=== PATIENT | male | born 1955 | race Caucasian/White ===

== ENCOUNTER 2024-09-11 08:27 | Inpatient (IN) ==
--- NOTE | 2024-09-11 08:39 | Emergency Department Note ---
Impression & Plan Right middle lobe pneumonia, Rhinovirus infection, Bullous emphysema, Pneumothorax on left ED Provider Note CHIEF COMPLAINT: Illness HISTORY OF PRESENTING ILLNESS: This 69-year-old male patient presents to the emergency department with his nephew for evaluation of an illness. The patient states that he started with flulike symptoms 1 week ago. Over the past couple of days he also feels very tired and rundown. Yesterday the symptoms seem to get worse. He is coughing up phlegm now as well. The patient does not have a family doctor and has not been evaluated for his symptoms. He states that over the past 2 days the fatigue is his worst symptom. Having trouble working because of the fatigue. He denies any fevers. He has not taken anything for his symptoms. The patient has been seen in the past for a racing heart beat. He states that he was told to get checked for Afib, but never followed up. He denies any chest pain or SOB at rest. He does have SOB with exertion. No chest pain with exertion. Denies abdominal pain, nausea, or vomiting. Denies any urinary symptoms. Denies constipation, diarrhea, or changes in his BMs. Denies hematochezia, melena, hematuria, hemoptysis, or hematemesis. He has been smoking a little less than 1 ppd since he was a kid. He denies vaping. REVIEW OF SYSTEMS: See HPI for pertinent positives and pertinent negatives. ALLERGIES: NKDA MEDICATIONS: None PAST MEDICAL HISTORY: History of a racing heart - was to get checked for Afib, but never followed up. PHYSICAL EXAM: Vital Signs: Vitals are noted on the nurse's note and reviewed by myself. GENERAL: The patient appears somewhat chronically ill in appearance and appears slightly older than his stated age. The patient is also thin. Otherwise non toxic in appearance and in no acute distress. SKIN: Capillary reflex less than 2 seconds. HEAD: Normocephalic, atraumatic. EARS: Bilateral external auditory canals clear without tragus tenderness. Bilateral tympanic membranes pearly maguire without erythema or effusion. No mastoid tenderness bilaterally. EYES: Pupils equal round and reactive to light and accommodation. Conjunctivae without injection, sclerae without icterus. Extraocular movements intact. NOSE: Patent, turbinates inflamed with no discharge. No sinus tenderness. MOUTH: Mucous membranes moist. Airway patent, uvula midline. Pharynx is not erythematous and not edematous without exudate. Pharynx without postnasal drip. No evidence for peritonsillar abscess. NECK: Supple without nuchal rigidity. No lymphadenopathy. HEART: Regular rate and rhythm without murmurs gallops or rubs. The patient's heartbeat is heard throughout the entire chest cavity (more so on the left) and into the left side of the abdomen. LUNGS: The patient has a somewhat barrel chest. Clear to auscultation bilaterally with scattered wheezes, but no obvious rales or rhonchi. No accessory muscle use or retractions. ABDOMEN: Positive bowel sounds x 4. See heart exam. Normal tympanic percussion. No obvious aneurysm palpated on exam. Soft, mildly tender to palpation in the upper abdomen. No masses or hepatosplenomegaly. No guarding, rigidity, or rebound tenderness. No CVA tenderness. No focal RLQ or LLQ tenderness. NEURO: Patient was alert and oriented. DIFFERENTIAL DIAGNOSIS: Differential diagnosis includes viral syndrome, RSV, Influenza, COVID, strep throat, pharyngitis/tonsillitis, mononucleosis, retropharyngeal abscess, peritonsillar abscess, otitis media, otitis externa, sinusitis, bronchitis, pneumonia, angina, ME, pericarditis, myocarditis, aortic dissection, pleurisy, pneumothorax, PE, pneumonia, pneumomediastinum, esophagitis, esophageal spasm, GERD, perforated esophagus, perforated duodenal/gastric ulcer, pancreatitis, cholecystitis, costochondritis, musculoskeletal, bronchitis, URI, or others. ED COURSE AND MEDICAL DECISION MAKING: HISTORY FROM INDEPENDENT HISTORIAN: Additional history obtained for the patient's nephew MEDICATIONS GIVEN: 500 mL normal saline solution bolus. DuoNeb treatment. Rocephin 2 g IV, Zithromax 500 mg p.o. Tessalon [place]. MONITOR: Continuous monitoring specialist: Order was placed for continuous monitoring specialist. Patient was placed on the monitoring specialist and continuous pulse ox. Patient was noted to be in normal sinus rhythm at an initial rate of 80 bpm per my interpretation. EKG: EKG was interpreted by myself as normal sinus rhythm at 73 bpm with nonspecific T wave changes, but no acute ST or T wave changes. INTERPRETATION OF LABS: I interpreted the labs with full lab results as below in the lab section of this note. Laboratory results pertinent to the emergent complaint are discussed in the MDM section below. The patient was advised to follow up with their PCP and/or specialist(s) for further outpatient monitoring and management of any abnormal results. INTERPRETATION OF IMAGING: Imaging studies were interpreted by myself and read by radiology as per the imaging section of this note. The patient was advised to follow up with their PCP and/or specialist(s) for further outpatient management of any non-emergent abnormal findings. CTA of the chest with IV contrast showed no evidence for PE. However, it did show pneumonia which is most prominent at the right middle lobe as well as severe emphysema with bullous change at the left lung apex. There is a trace left apical pneumothorax which can be seen with ruptured bulla due to coughing. CT scan of the abdomen pelvis with IV contrast showed no acute abnormalities. There are a few scattered tiny cysts of the liver and a likely hemangioma of the liver. The liver contour is mildly lobular which can be a normal variant versus early cirrhosis. Prostate is enlarged. Diverticulosis, but no diverticulitis. Moderate retained stool. No obstruction. CHRONIC MEDICAL/SOCIAL CONDITIONS AFFECTING CARE: Longstanding tobacco use. No outpatient followup/PCP CONSULTATIONS: Dr. De León of pulmonology. On-call hospitalist. MDM SUMMARY: I examined the patient. The patient has had a cough and URI symptoms for the past week. He now feels very tired and weak and has shortness of breath on exertion. The patient states that he does not really follow-up with a family doctor. He was told in the past that he has a history of a racing heart and was to get checked for A-fib, but never followed up. The patient also has a somewhat barrel chest on exam, is thin in appearance, and his heart is heard throughout his entire chest cavity as well as on the left side of his abdomen. An IV lock was placed and labs were drawn. The patient was given 500 mL normal saline solution bolus as well as a DuoNeb treatment. The patient had mild improvement of his wheezing and breathing with a DuoNeb treatment. White blood cell count normal at 8.22. Hemoglobin low at 13.2. Platelet count normal at 258. Coags were normal. Sodium 135 and glucose 124, but CMP otherwise normal. Magnesium normal. Lipase normal. High-sensitivity troponin normal. Urinalysis normal. Respiratory BioFire positive for rhinovirus/enterovirus. MRSA nasal swab negative. Blood cultures are pending. Sputum culture is pending. Due to the patient's history and physical exam findings as well as lack of outpatient medical care, imaging was performed. CTA of the chest with IV contrast showed no evidence for PE. However, it did show pneumonia which is most prominent at the right middle lobe as well as severe emphysema with bullous change at the left lung apex. There is a trace left apical pneumothorax which can be seen with ruptured bulla due to coughing. CT scan of the abdomen pelvis with IV contrast showed no acute abnormalities. There are a few scattered tiny cysts of the liver and a likely hemangioma of the liver. The liver contour is mildly lobular which can be a normal variant versus early cirrhosis. Prostate is enlarged. Diverticulosis, but no diverticulitis. Moderate retained stool. No obstruction. I spoke with Dr. De León of pulmonology in regards to the patient. He stated that the trace left apical pneumothorax can be medically managed at this time, but may require chest tube if it becomes enlarged. The patient is to have oxygen titrated to keep his pulse ox above 90 to 92%. The patient has not required any oxygen at this time. The patient was given Rocephin 2 g IV and Zithromax 500 mg p.o. for treatment of the pneumonia. The patient was given Tessalon Perle to help prevent coughing. I had a meaningful discussion about this patient with Dr. Ugalde who agrees with my assessment and the treatment plan. The patient will require admission for his pneumonia and pneumothorax as well as severe emphysema that has not been treated as an outpatient. I spoke with the on-call hospitalist who agreed to admit the patient for further evaluation and treatment. Please refer to their dictation for further details. The patient's care was transferred in stable condition. DIAGNOSIS: Right middle lobe pneumonia Trace left apical pneumothorax Severe bullous emphysema Rhinovirus/enterovirus Past Med/Surg History Problem List (Updated 09/11/24 @ 14:19 by Tawnya Hodgson PA-C) Pneumothorax on left (Acute) Secondary spontaneous pneumothorax Current smoker Right middle lobe pneumonia (Acute) Bullous emphysema (Acute) Severe chronic obstructive pulmonary disease Rhinovirus infection (Acute) Enterovirus infection Social History Smoking Status: Current every day smoker Tobacco Type: Cigarettes Preferred Language: Hebrew Feels Safe at Home: Yes Allergies Allergies Allergy/AdvReac Type Severity Reaction Status Date / Time No Known Allergies Allergy Unverified 06/07/21 15:43 Home Meds Home Medications Medication Instructions Recorded Confirmed aspirin 325 mg tablet 325 mg PO BID PRN .Headache/pain 06/07/21 09/11/24 Results & Data (ED) Vital Signs Vital Signs - 24 hr 09/11/24 08:34 09/11/24 09:03 09/11/24 09:03 Temperature 36.6 C Temperature Source Temporal Artery Scan Pulse Rate 82 77 Pulse Rate [Apical] 74 Respiratory Rate 18 16 16 Respiratory Effort / Characteristics Non-Labored Spontaneous Non-Labored Spontaneous Respiratory Depth Normal Respiratory Pattern Regular Blood Pressure 154/98 H Blood Pressure [Right Arm] 148/84 H Blood Pressure Mean 116 Blood Pressure Mean [Right Arm] 105 Blood Pressure Position [Right Arm] Pulse Oximetry 91 94 93 Oxygen Delivery Method Room Air Room Air Room Air Sepsis Recent Fever Within 48 Hours No Sepsis New/Unexplained Change in Mental Status N/A Sepsis Action Taken by Nursing No Action Required 09/11/24 09:09 09/11/24 10:55 09/11/24 11:00 Temperature Temperature Source Pulse Rate 75 Pulse Rate [Apical] 71 Respiratory Rate 16 Respiratory Effort / Characteristics Non-Labored Spontaneous Respiratory Depth Respiratory Pattern Blood Pressure Blood Pressure [Right Arm] 139/78 Blood Pressure Mean Blood Pressure Mean [Right Arm] 98 Blood Pressure Position [Right Arm] Lying Pulse Oximetry 96 97 Oxygen Delivery Method Room Air Room Air Sepsis Recent Fever Within 48 Hours Sepsis New/Unexplained Change in Mental Status Sepsis Action Taken by Nursing Laboratory Data 09/11/24 09:24 09/11/24 08:53 Lab Results 09/11/24 09/11/24 09/11/24 Range/Units 08:53 09:00 09:24 WBC Cancelled 8.22 RBC Cancelled 4.63 L Hgb Cancelled 13.2 L Hct Cancelled 40.6 L MCV Cancelled 87.7 MCH Cancelled 28.5 MCHC Cancelled 32.5 RDW Std Deviation Cancelled 41.6 RDW Coeff of Isacc Cancelled 12.9 Plt Count Cancelled 258 MPV Cancelled 9.1 L Immature Gran % (Auto) Cancelled 0.4 Neut % (Auto) Cancelled 77.1 Lymph % (Auto) Cancelled 7.8 Wetzel % (Auto) Cancelled 14.1 Eos % (Auto) Cancelled 0.2 Baso % (Auto) Cancelled 0.4 Neut # (Auto) Cancelled 6.34 Lymph # (Auto) Cancelled 0.64 L Wetzel # (Auto) Cancelled 1.16 H Eos # (Auto) Cancelled 0.02 Baso # (Auto) Cancelled 0.03 Immature Gran # (Auto) Cancelled 0.03 Absolute Nucleated RBC Cancelled Nucleated RBC % (auto) Cancelled Neutrophils % (Manual) Cancelled Band Neutrophils % Cancelled Lymphocytes % (Manual) Cancelled Prolymphocyte % Cancelled Reactive Lymphs % (Man) Cancelled Monocytes % (Manual) Cancelled Eosinophils % (Manual) Cancelled Basophils % (Manual) Cancelled Metamyelocytes % (Man) Cancelled Myelocytes % (Man) Cancelled Promyelocytes % (Man) Cancelled Blast Cells % (Manual) Cancelled Plasma Cell % (Manual) Cancelled Other Cells % Cancelled Nucleated RBC % Cancelled Neutrophils # (Manual) Cancelled Band Neutrophils # Cancelled Total Absolute Neuts Cancelled Lymphocytes # (Manual) Cancelled Prolymphocyte # Cancelled Reactive Lymphs # Cancelled Total Abs Lymphocytes Cancelled Monocytes # (Manual) Cancelled Eosinophils # (Manual) Cancelled Basophils # (Manual) Cancelled Metamyelocytes # (Man) Cancelled Myelocytes # (Manual) Cancelled Promyelocytes # (Man) Cancelled Blast Cells # (Man) Cancelled Plasma Cell # (Manual) Cancelled Other Cells # Cancelled Nucleated RBCs # (Man) Cancelled Hypersegmented Neuts Cancelled Hyposegmented Neuts Cancelled Hypogranular Neuts Cancelled Large Granular Lymphs Cancelled # Lrg Granular Lymphs Cancelled Hairy Cells Cancelled Smudge Cells Cancelled Toxic Granulation Cancelled Toxic Vacuolation Cancelled Dohle Bodies Cancelled [place] Rods Cancelled Platelet Estimate Cancelled Hypogranular Platelets Cancelled Giant Platelets Cancelled Platelet Satelliting Cancelled RBC Morphology Cancelled Polychromasia Cancelled Hypochromasia Cancelled Poikilocytosis Cancelled Basophilic Stippling Cancelled Anisocytosis Cancelled Microcytosis Cancelled Macrocytosis Cancelled Spherocytes Cancelled Pappenheimer Bodies Cancelled Sickle Cells Cancelled Target Cells Cancelled Tear Drop Cells Cancelled Ovalocytes Cancelled Stomatocytes Cancelled [place] Bodies Cancelled Echinocytes Cancelled Acanthocytes (Spur) Cancelled Rouleaux Cancelled RBC Agglutinates Cancelled Schistocytes Cancelled Sezary Cell Cancelled PT 10.4 (9.0-12.0) Seconds INR 1.0 (0.9-1.1) APTT 22 (21-31) Seconds PTT Ratio 0.8 Sodium 135 L (136-145) mmol/L Potassium 4.3 (3.5-5.1) mmol/L Chloride 97 L (98-107) mmol/L Carbon Dioxide 29 (21-32) mmol/L Anion Gap 9 (3-11) BUN 11 (6-23) mg/dl Creatinine 0.76 (0.6-1.4) mg/dl Est Cr Clr Drug Dosing 69.0 ml/min eGFR 98.51 BUN/Creatinine Ratio 14.5 (10-20) Glucose 124 H (70-99(Fasting)) mg/dl Calcium 9.5 (8.6-10.3) mg/dl Magnesium 2.0 (1.7-2.4) mg/dl Total Bilirubin 0.7 (0.2-1.0) mg/dl AST 21 (13-39) U/L ALT 13 (7-52) U/L Alkaline Phosphatase 102 (34-104) U/L Troponin I High Sens 5.8 (0-20) pg/ml Total Protein 7.4 (6.0-8.3) gm/dl Albumin 3.7 (3.4-5.0) gm/dl Globulin 3.7 (2.5-4.0) gm/dl Albumin/Globulin Ratio 1.0 (0.9-2) Lipase 44 (11-82) U/L Urine Color Urine Appearance (Clear) Urine pH (4.5-7.5) Ur Specific [place] (1.000-1.030) Urine Protein (Negative) Urine Glucose (UA) (Negative) Urine Ketones (Negative) Urine Blood (Negative) Urine Nitrite (Negative) Urine Bilirubin (Negative) Urine Urobilinogen (Negative) Ur Leukocyte Esterase (Negative) Urine Comment Nasal Screen MRSA (PCR) (Negative) Adenovirus (PCR) Not Detected (NotDetected) B. pertussis DNA (PCR) Not Detected (NotDetected) B.parapertussis DNA PCR Not Detected (NotDetected) C. pneumoniae DNA (PCR) Not Detected (NotDetected) Coronavirus OC43 (PCR) Not Detected (NotDetected) Coronavirus HKU1 (PCR) Not Detected (NotDetected) Coronavirus 229E (PCR) Not Detected (NotDetected) SARS-CoV-2 (PCR) Not Detected (NotDetected) Coronavirus NL63 (PCR) Not Detected (NotDetected) Human Metapneumovir PCR Not Detected (NotDetected) Influenza Type A (PCR) Not Detected (NotDetected) Influenza Type B (PCR) Not Detected (NotDetected) M. pneumoniae (PCR) Not Detected (NotDetected) Parainfluenza 1 (PCR) Not Detected (NotDetected) Parainfluenza 2 (PCR) Not Detected (NotDetected) Parainfluenza 3 (PCR) Not Detected (NotDetected) Parainfluenza 4 (PCR) Not Detected (NotDetected) RSV (PCR) Not Detected (NotDetected) Entero/Rhino (PCR) DETECTED A (NotDetected) Blood Parasites ID Cancelled 09/11/24 09/11/24 Range/Units 10:32 10:41 WBC RBC Hgb Hct MCV MCH MCHC RDW Std Deviation RDW Coeff of Isacc Plt Count MPV Immature Gran % (Auto) Neut % (Auto) Lymph % (Auto) Wetzel % (Auto) Eos % (Auto) Baso % (Auto) Neut # (Auto) Lymph # (Auto) Wetzel # (Auto) Eos # (Auto) Baso # (Auto) Immature Gran # (Auto) Absolute Nucleated RBC Nucleated RBC % (auto) Neutrophils % (Manual) Band Neutrophils % Lymphocytes % (Manual) Prolymphocyte % Reactive Lymphs % (Man) Monocytes % (Manual) Eosinophils % (Manual) Basophils % (Manual) Metamyelocytes % (Man) Myelocytes % (Man) Promyelocytes % (Man) Blast Cells % (Manual) Plasma Cell % (Manual) Other Cells % Nucleated RBC % Neutrophils # (Manual) Band Neutrophils # Total Absolute Neuts Lymphocytes # (Manual) Prolymphocyte # Reactive Lymphs # Total Abs Lymphocytes Monocytes # (Manual) Eosinophils # (Manual) Basophils # (Manual) Metamyelocytes # (Man) Myelocytes # (Manual) Promyelocytes # (Man) Blast Cells # (Man) Plasma Cell # (Manual) Other Cells # Nucleated RBCs # (Man) Hypersegmented Neuts Hyposegmented Neuts Hypogranular Neuts Large Granular Lymphs # Lrg Granular Lymphs Hairy Cells Smudge Cells Toxic Granulation Toxic Vacuolation Dohle Bodies [place] Rods Platelet Estimate Hypogranular Platelets Giant Platelets Platelet Satelliting RBC Morphology Polychromasia Hypochromasia Poikilocytosis Basophilic Stippling Anisocytosis Microcytosis Macrocytosis Spherocytes Pappenheimer Bodies Sickle Cells Target Cells Tear Drop Cells Ovalocytes Stomatocytes Ludwig[place] Bodies Echinocytes Acanthocytes (Spur) Rouleaux RBC Agglutinates Schistocytes Sezary Cell PT (9.0-12.0) Seconds INR (0.9-1.1) APTT (21-31) Seconds PTT Ratio Sodium (136-145) mmol/L Potassium (3.5-5.1) mmol/L Chloride (98-107) mmol/L Carbon Dioxide (21-32) mmol/L Anion Gap (3-11) BUN (6-23) mg/dl Creatinine (0.6-1.4) mg/dl Est Cr Clr Drug Dosing ml/min eGFR BUN/Creatinine Ratio (10-20) Glucose (70-99(Fasting)) mg/dl Calcium (8.6-10.3) mg/dl Magnesium (1.7-2.4) mg/dl Total Bilirubin (0.2-1.0) mg/dl AST (13-39) U/L ALT (7-52) U/L Alkaline Phosphatase (34-104) U/L Troponin I High Sens (0-20) pg/ml Total Protein (6.0-8.3) gm/dl Albumin (3.4-5.0) gm/dl Globulin (2.5-4.0) gm/dl Albumin/Globulin Ratio (0.9-2) Lipase (11-82) U/L Urine Color Yellow Urine Appearance Clear (Clear) Urine pH 6.5 (4.5-7.5) Ur Specific [place] 1.026 (1.000-1.030) Urine Protein Negative (Negative) Urine Glucose (UA) Negative (Negative) Urine Ketones Negative (Negative) Urine Blood Negative (Negative) Urine Nitrite Negative (Negative) Urine Bilirubin Negative (Negative) Urine Urobilinogen Negative (Negative) Ur Leukocyte Esterase Negative (Negative) Urine Comment Nasal Screen MRSA (PCR) Negative (Negative) Adenovirus (PCR) (NotDetected) B. pertussis DNA (PCR) (NotDetected) B.parapertussis DNA PCR (NotDetected) C. pneumoniae DNA (PCR) (NotDetected) Coronavirus OC43 (PCR) (NotDetected) Coronavirus HKU1 (PCR) (NotDetected) Coronavirus 229E (PCR) (NotDetected) SARS-CoV-2 (PCR) (NotDetected) Coronavirus NL63 (PCR) (NotDetected) Human Metapneumovir PCR (NotDetected) Influenza Type A (PCR) (NotDetected) Influenza Type B (PCR) (NotDetected) M. pneumoniae (PCR) (NotDetected) Parainfluenza 1 (PCR) (NotDetected) Parainfluenza 2 (PCR) (NotDetected) Parainfluenza 3 (PCR) (NotDetected) Parainfluenza 4 (PCR) (NotDetected) RSV (PCR) (NotDetected) Entero/Rhino (PCR) (NotDetected) Blood Parasites ID Administered Medications Guaifenesin/Dextromethorphan (Guaifenesin/Dextrom Syrup 200mg/20mg 10ml Udc) 10 ml PO Q8 JACLYN Stop: 10/11/24 13:59 Last Admin: 09/11/24 13:23 Dose: 10 ml Documented By: INDRA Discontinued Medications Albuterol (Albut/Ipratrop 3mg/0.5mg Neb 3 Ml Vial) 3 ml NEB NOW STA; Protocol Stop: 09/11/24 08:57 Last Admin: 09/11/24 09:10 Dose: 3 ml Documented By: INDRA Azithromycin (Azithromycin 250 Mg Tab) 500 mg PO NOW ONE Stop: 09/11/24 10:56 Last Admin: 09/11/24 11:14 Dose: 500 mg Documented By: LITTLE Benzonatate (Benzonatate 100 Mg Capsule) 100 mg PO NOW ONE Stop: 09/11/24 10:56 Last Admin: 09/11/24 11:14 Dose: 100 mg Documented By: LITTLE Sodium Chloride (Nss) 500 mls @ 999 mls/hr IV .Q31M ONE Stop: 09/11/24 09:26 Last Infusion: 09/11/24 10:14 Dose: Infused Documented By: Admin: 09/11/24 09:10 Dose: 999 mls/hr Documented By: INDRA Ceftriaxone Sodium (Rocephin) 2,000 mg in 50 mls @ 100 mls/hr IV NOW STA Stop: 09/11/24 11:24 Last Infusion: 09/11/24 12:00 Dose: Infused Documented By: Admin: 09/11/24 11:14 Dose: 100 mls/hr Documented By: LITTLE Ioversol (Optiray 320 125ml) 120 ml IV ONCE ONE Stop: 09/11/24 09:42 Last Admin: 09/11/24 09:41 Dose: 120 ml Documented By: RAQUEL Imaging Data Radiologist's Impression: Abdomen/Pelvis CT 09/11/24 08:[address] WITH IV CONTRAST CT DOSE: 765 HISTORY: upper abd pain, fatigue, TECHNIQUE: Multiaxial CT images of the abdomen and pelvis were performed following the IV administration of 120 cc of Optiray, A dose lowering technique was utilized adhering to the principles of ALARA. COMPARISON STUDY: None FINDINGS: ABDOMEN: There are a few scattered tiny cysts at the liver. There is a 1.5 cm enhancing finding lateral right hepatic lobe, likely hemangioma. Liver contour is mildly lobular, normal variant versus early cirrhosis. No ascites. Gallbladder is contracted, otherwise unremarkable. Spleen, pancreas, and adrenal glands are unremarkable. Kidneys show no hydronephrosis. There are a few tiny renal cysts. There are scattered atherosclerotic calcifications. No abdominal aortic aneurysm. Pelvis: Prostate is enlarged. Urinary bladder is distended. There is mild sigmoid diverticulosis. No acute diverticulitis seen. There is moderate retained stool. No bowel inflammation or obstruction. No free fluid, free air, or abscess. No enlarged adenopathy. Osseous structures: There is mild diffuse degenerative disc disease with a few Schmorl's nodes at the lumbar spine. There are mild degenerative changes at the hips. IMPRESSION: 1. No acute findings. 2. Otherwise as described. ACT 112: Negative or not required by law. The above report was generated using voice recognition software. It may contain grammatical, syntax or spelling errors. Electronically signed by: Paddy Camacho M.D. 09/11/2024 10:23 AM Chest CTA 09/11/24 08:56 CT angio chest PE protocol CT DOSE: 764.78 mGy.cm HISTORY: Chest Pain, eval for PE. TECHNIQUE: Multiple CTA images of the chest were obtained after the intravenous administration of 120 ml Optiray. Coronal and sagittal MIPS were obtained from the axial data set and were submitted for review. All measurements were obtained according to NASCET criteria. A dose lowering technique was utilized adhering to the principles of ALARA. COMPARISON STUDY: None FINDINGS: There are moderate airway secretions. There is bronchial wall thickening consistent with bronchitis. There is severe emphysema. There is mucous plugging and bandlike and patchy consolidation at the right middle lobe consistent with pneumonia. There are small areas of reticular nodular and patchy groundglass opacity in the lung bases with infectious morphology. There is a focal area of cystic bronchiectasis at the left lung apex with adjacent small area of bandlike consolidation. There is a left apical bulla measuring 5 cm. There is a trace left apical pneumothorax. There is mild pleural thickening and scarring at the right lung apex. No thoracic aortic aneurysm or dissection seen. No pulmonary embolism. No pericardial effusion. There is mild mediastinal and hilar adenopathy, possibly reactive due to the pneumonia. There are mild thoracic spine degenerative changes. IMPRESSION: 1. No pulmonary embolism seen. 2. Pneumonia most prominent at the right middle lobe. 3. Severe emphysema with bullous change at the left lung apex. 4. Trace left apical pneumothorax, can be seen with ruptured bulla due to coughing. Short-term follow-up is recommended to make sure the pneumothorax does not increase in size. 5. Recommend follow-up chest CT in 3 months to make sure the pneumonia resolves without underlying pulmonary nodule. ACT 112: Positive. There are findings on this exam that require communication between the performing entity and the patient following Patient Test Result Information Act ([place] Act 112) guidelines. The above report was generated using voice recognition software. It may contain grammatical, syntax or spelling errors. Electronically signed by: Paddy Camacho M.D. 09/11/2024 10:14 AM Discharge Plan Visit Data Chief Complaint: Flu Like Symptoms Stated Complaint: RUN DOWN, FATIGUE ED Provider: Ace Ugalde ED Midlevel Provider: Tawnya Hodgson Discharge Problem: Right middle lobe pneumonia, Rhinovirus infection, Bullous emphysema, Pneumothorax on left Patient Disposition: Admitted As Inpatient Condition: Fair Discharge Instructions Interventions: ED Discharge Assessment Last Done: 09/11/24 13:42 Discharge Problem: Right middle lobe pneumonia Qualifiers: Pneumonia type: due to unspecified organism Qualified Code(s): J18.9 - Pneumonia, unspecified organism
[2024-09-11] MEDS: ALBUT/IPRATROP 3MG/0.5MG NEB 3 ML VIAL NEB STA (09:10)
[2024-09-11] MEDS: SODIUM CHLORIDE 0.9% 500 ML IV ONE (09:10)
[2024-09-11 09:32] LABS: Albumin Level 3.7 gm/dl (3.4-5.0); BUN Creatinine Ratio 14.5 (10-20); Bilirubin,Total 0.7 mg/dl (0.2-1.0); Calcium 9.5 mg/dl (8.6-10.3); Globulin 3.7 gm/dl (2.5-4.0); Potassium 4.3 mmol/L (3.5-5.1); Total Protein 7.4 gm/dl (6.0-8.3)
[2024-09-11 09:35] LABS: Basophils # (auto) 0.03 K/uL (0.00-0.20); Basophils % (auto) 0.4 %; Eosinophils # (auto) 0.02 K/uL (0.00-0.50); Eosinophils % (auto) 0.2 %; Hematocrit (blood only) 40.6 % (42.0-52.0); Hemoglobin 13.2 g/dl (14.0-18.0); Immature Granulocytes # (auto) 0.03 K/uL (0.01-0.20); Immature Granulocytes % (auto) 0.4 %; Lymphocytes # (auto) 0.64 K/uL (1.20-3.40); Lymphocytes % (auto) 7.8 %; Mean Corpuscular Hemoglobin 28.5 pg (25.0-34.0); Mean Corpuscular Hgb Conc 32.5 g/dL (32.0-36.0); Mean Corpuscular Volume 87.7 fL (80.0-100.0); Mean Platelet Volume 9.1 fL (9.4-12.4); Monocytes # (auto) 1.16 K/uL (0.11-0.59); Monocytes % (auto) 14.1 %; Neutrophils # (auto) 6.34 K/uL (1.40-6.50); Neutrophils % (auto) 77.1 %; Platelet Count 258 K/uL (130-400); RDW Coefficient of Variation 12.9 % (11.5-14.5); RDW Standard Deviation 41.6 fL (36.4-46.3); Red Blood Count 4.63 M/uL (4.70-6.10); White Blood Count 8.22 K/ul (4.8-10.8)
[2024-09-11 09:39] LABS: Troponin I High Sensitivity 5.8 pg/ml (0-20)
[2024-09-11 09:41] LABS: Partial Thromboplastin Ratio 0.8; Partial Thromboplastin Time 22 Seconds (21-31); Prothrombin Time 10.4 Seconds (9.0-12.0)
[2024-09-11] MEDS: OPTIRAY 320 125ml IV ONE (09:41)
[2024-09-11 10:03] LABS: Adenovirus PCR Not Detected (NotDetected); Bordetella parapertussis PCR Not Detected (NotDetected); Bordetella pertussis PCR Not Detected (NotDetected); Chlamydia pneumoniae PCR Not Detected (NotDetected); Coronavirus 229E PCR Not Detected (NotDetected); Coronavirus CoV-2 (COVID19)PCR Not Detected (NotDetected); Coronavirus HKU1 PCR Not Detected (NotDetected); Coronavirus NL63 PCR Not Detected (NotDetected); Coronavirus OC43PCR Not Detected (NotDetected); Human Metapneumovirus PCR Not Detected (NotDetected); Influenza A PCR Not Detected (NotDetected); Influenza B PCR Not Detected (NotDetected); Mycoplasma pneumoniae PCR Not Detected (NotDetected); Parainfluenza Virus 1 PCR Not Detected (NotDetected); Parainfluenza Virus 2 PCR Not Detected (NotDetected); Parainfluenza Virus 3 PCR Not Detected (NotDetected); Parainfluenza Virus 4 PCR Not Detected (NotDetected); Respiratory Syncytial VirusPCR Not Detected (NotDetected); Rhinovirus/Enterovirus PCR DETECTED (NotDetected)
--- NOTE | 2024-09-11 10:16 | CT Scan Report ---
CT angio chest PE protocol CT DOSE: 764.78 mGy.cm HISTORY: Chest Pain, eval for PE. TECHNIQUE: Multiple CTA images of the chest were obtained after the intravenous administration of 120 ml Optiray. Coronal and sagittal MIPS were obtained from the axial data set and were submitted for review. All measurements were obtained according to NASCET criteria. A dose lowering technique was u tilized adhering to the principles of ALARA. COMPARISON STUDY: None FINDINGS: There are moderate airway secretions. There is bronchial wall thickening consistent with br onchitis. There is severe emphysema. There is mucous plugging and bandlike and patchy consolidation a t the right middle lobe consistent with pneumonia. There are small areas of reticular nodular and pat jack groundglass opacity in the lung bases with infectious morphology. There is a focal area of cystic bronchiectasis at the left lung apex with adjacent small area of bandlike consolidation. There is a left apical bulla measuring 5 cm. There is a trace left apical pneumothorax. There is mild pleural th ickening and scarring at the right lung apex. No thoracic aortic aneurysm or dissection seen. No pulm onary embolism. No pericardial effusion. There is mild mediastinal and hilar adenopathy, possibly sade ctive due to the pneumonia. There are mild thoracic spine degenerative changes. IMPRESSION: 1. No pulmonary embolism seen. 2. Pneumonia most prominent at the right middle lobe. 3. Severe emphysema with bullous change at the left lung apex. 4. Trace left apical pneumothorax, can be seen with ruptured bulla due to coughing. Short-term follow -up is recommended to make sure the pneumothorax does not increase in size. 5. Recommend follow-up chest CT in 3 months to make sure the pneumonia resolves without underlying pu lmonary nodule. ACT 112: Positive. There are findings on this exam that require communication between the performing entity and the patient following Patient Test Result Information Act ([place] Act 112) guidelines. The above report was generated using voice recognition software. It may contain grammatical, syntax o r spelling errors. Electronically signed by: Paddy Camacho M.D. 09/11/2024 10:14 AM
--- NOTE | 2024-09-11 10:25 | CT Scan Report ---
ABDOMEN AND PELVIS CT WITH IV CONTRAST CT DOSE: 765 HISTORY: upper abd pain, fatigue, TECHNIQUE: Multiaxial CT images of the abdomen and pelvis were performed following the IV administrat ion of 120 cc of Optiray, A dose lowering technique was utilized adhering to the principles of ALARA . COMPARISON STUDY: None FINDINGS: ABDOMEN: There are a few scattered tiny cysts at the liver. There is a 1.5 cm enhancing finding later al right hepatic lobe, likely hemangioma. Liver contour is mildly lobular, normal variant versus sonia y cirrhosis. No ascites. Gallbladder is contracted, otherwise unremarkable. Spleen, pancreas, and adr enal glands are unremarkable. Kidneys show no hydronephrosis. There are a few tiny renal cysts. There are scattered atherosclerotic calcifications. No abdominal aortic aneurysm. Pelvis: Prostate is enlarged. Urinary bladder is distended. There is mild sigmoid diverticulosis. No acute diverticulitis seen. There is moderate retained stool. No bowel inflammation or obstruction. No free fluid, free air, or abscess. No enlarged adenopathy. Osseous structures: There is mild diffuse degenerative disc disease with a few Schmorl's nodes at the lumbar spine. There are mild degenerative changes at the hips. IMPRESSION: 1. No acute findings. 2. Otherwise as described. ACT 112: Negative or not required by law. The above report was generated using voice recognition software. It may contain grammatical, syntax o r spelling errors. Electronically signed by: Paddy Camacho M.D. 09/11/2024 10:23 AM
[2024-09-11 10:50] LABS: Appearance Urine Clear (Clear); Bilirubin Urine Negative (Negative); Blood Urine Negative (Negative); Color Urine Yellow; Glucose Urine UA Negative (Negative); Ketones Urine Negative (Negative); Leukocyte Esterase Urine Negative (Negative); Nitrite Urine Negative (Negative); Protein Urine Negative (Negative); Specific Gravity Urine 1.026 (1.000-1.030); Urobilinogen Urine Negative (Negative); pH Urine 6.5 (4.5-7.5)
--- NOTE | 2024-09-11 11:01 | Pulmonary Consultation ---
Date of Consultation September 11, 2024 Assessment & Plan (1) Right middle lobe pneumonia: (2) Bullous emphysema: (3) Severe chronic obstructive pulmonary disease: (4) Rhinovirus infection: (5) Enterovirus infection: (6) Current smoker: (7) Secondary spontaneous pneumothorax: Plan 69-year-old male was admitted to the hospital because of right middle lobe pneumonia as well as trace left apical pneumothorax Past medical history: Active heavy smoker. CTA chest 09/11/2024 personally reviewed: Severe centrilobular paraseptal emphysema appreciated bilaterally Bullous disease in the left upper lobe with trace left apical pneumothorax Consolidative changes appreciated in the right middle lobe No significant mediastinal lymphadenopathy -- Pneumonia Right middle lobe as well as periphery of the left upper lobe Respiratory BioFire positive for entero-/rhinovirus QTc 418 -- Trace left apical spontaneous secondary pneumothorax Continue with serial chest x-rays Avoid positive pressure ventilation, avoid flutter valve Antitussive medication [id number] -- Severe COPD with emphysema and bullous disease Gold E >[id number] 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 Not on any inhalers at home Would recommend Trelegy or BrezTri on discharge Full PFT as an outpatient -- History of lung cancer in brother and sister were both smokers Plan: Antitussive medication [id number] Avoid flutter valve and positive pressure ventilation Serial chest x-rays to make sure the pneumothorax is not getting worse Continue with antibiotics, follow-up sputum culture Nebulized bronchodilators while in the hospital Case was discussed with the ER as well as RN I spent more than 75 minutes looking in the chart, images, discussing the plan of care with the patient, RN as well as primary team Please note the above document was generated using voice recognition software. It may contain grammatical, syntax or spelling errors.Any formal questions or concerns about the content, text or information contained within the body of this dictation should be directly addressed to the provider for clarification. History of Present Illness History of Present Illness 69-year-old male present to the hospital with complaints of coughing and shortness of breath. Pulmonary consulted for the same Past medical history: Noncontributory Patient's niece was in the room at the time of examination Patient was saturating 93-94% on room air. He was not in any respiratory distress Systolic blood pressure was in the 130s with heart rate in the high 60s to low 70s Patient stated that he has been having issues with coughing for approximately couple of days. Generalized malaise When he does bring up phlegm is mostly clear. Denies any hemoptysis. Denies any chest congestion No history of trauma. No dysuria or diarrhea prior to coming to the hospital No nausea or vomiting Fair appetite No night sweats or unintentional weight loss. Social history: 25-[id number] smoking history, currently smoking a pack a day, w orks in construction with exposure to sand dust Strong family history of lung cancer in brother and sister were both smokers Allergies Allergy/AdvReac Type Severity Reaction Status Date / Time No Known Allergies Allergy Unverified 06/07/21 15:43 Home Medications Medication Instructions Recorded Confirmed Type aspirin 325 mg tablet 325 mg PO BID PRN .Headache/pain 06/07/21 09/11/24 History Patient History Social History Smoking Status: Current every day smoker Tobacco Type: Cigarettes Preferred Language: Sinhala Feels Safe at Home: Yes Review of Systems 2 Review of Systems: All systems reviewed & are unremarkable except as noted in HPI & below Physical Exam 2 Physical Exam: Constitutional: No acute distress, frail-appearing HEENT: EOMI, PERRLA, no subcu crepitus Respiratory system: Decreased air entry bilaterally, no wheeze, no rhonchi, no crackles CVS: S1-S2 positive, no murmurs or gallops Abdomen: Soft, nontender, nondistended, positive bowel sounds x4 Extremities: +2 pulses bilaterally radialis/ dorsalis pedis, no cyanosis, no edema Neuro: Awake alert oriented x3 Psych: Normal mood and affect G/U: No Rueda Skin: no rashes, warm and dry Lymphatic: no cervical or axillary lymphadenopathy Results & Data Results & Data Vital Signs (Past 12 Hours) Vital Signs Temp Pulse Pulse Resp BP BP Pulse Ox 09/11/24 09:09 75 09/11/24 09:03 77 16 93 09/11/24 09:03 74 16 148/84 H 94 09/11/24 08:34 36.6 C 82 18 154/98 H 91 O2 Del Method 09/11/24 09:09 09/11/24 09:03 Room Air 09/11/24 09:03 Room Air 06/22/25 08:34 Room Air Laboratory Results 09/11/24 09:24 09/11/24 08:53 PG Care Time/CCT Total # of Minutes Spent Total Time Spent with Patient: Total time spent is greater than 50% in coordination of care (as documented) at patient's floor/unit and/or counseling patient: Coding Level of Care Code 32838 INT INP/OBS CARE 3/75MIN Diagnoses Right middle lobe pneumonia J18.9 Bullous emphysema J43.9 Severe chronic obstructive pulmonary disease J44.9 Rhinovirus infection B34.8 Enterovirus infection B34.1 Current smoker F17.200 Secondary spontaneous pneumothorax J93.12
[2024-09-11] MEDS: BENZONATATE 100 MG CAPSULE PO ONE (11:14)
[2024-09-11] MEDS: AZITHROMYCIN 250 MG TAB PO ONE (11:14)
[2024-09-11] MEDS: cefTRIAXone SODIUM 2,000 MG/50 ML BAG IV STA (11:14)
--- NOTE | 2024-09-11 11:37 | History & Physical Report ---
Date of Service September 11, 2024 Assessment & Plan (1) Enterovirus infection: (2) Rhinovirus infection: (3) Severe chronic obstructive pulmonary disease: (4) Bullous emphysema: (5) Right middle lobe pneumonia: Plan Kranthi Padilla is a 69 y/o M without relevant past medical history due to limited physician follow-up. Patient admitted due to severe emphysema and pneumothorax complicated by concurrent rhino/entero virus infection and RML pneumonia. Entero/Rhino virus infection/RML pneumonia/Severe COPD with Bullous emphysema/Trace L. Pneumothorax - Patient without acute respiratory distress reports increasing SOB with exertion since yesterday associated with flu-like symptoms - Patient with 50 pack year smoking history - Continue Zithromax and Rocephin antibiotic therapy for RML consolidation, follow sputum cx - Continue Tessalon Perls anti-tussive medication, nebulized bronchodilators, and serial CXRs for pneumothorax - Consider PFTs, annual low-dose chest CT screenings, and Trelegy inhaler upon d/c - 3 month follow-up diagnostic chest CT for to view resolution of pneumonia without underlying pulmonary nodule - Currently on RA, titrate oxygen requirements for SpO2: 90-92% - Avoid positive pressure ventilation and flutter valve therapy - Family history of Lung carcinoma in brother and sister who were also smokers, patient is contemplating quitting smoking - Case management consult placed to discuss regular PCP follow-up, glad to see patient outpatient in clinic following hospital stay History of Present Illness Chief Complaint: Flu-like symptoms, fatigue Primary Care Provider: NO PCP Kranthi Padilla is a 69 y/o M without previous past medical history as he does not regularly see a doctor or PCP. Patient reports that over the past week or so he has felt like he has had the flu, with cough, fatigue, and muscle aches. Patient notes that he felt much more "run down" than usual yesterday and noticed that he was getting very SOB with exertion during work. 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 Patient denies chest pain during exertion and rest and denies SOB at rest. Patient does endorse a productive cough of yellow phlegm that feels stuck in his chest and throat and is difficult to clear. Patient does reports a history of palpitations and states that he was supposed to see a doct or to get an evaluation for a-fib, but reports that he was stubborn and did not follow-up. Patient's only regular medication is aspirin and he has never used oxygen or inhaler therapies. Mr. Padilla reports that he has been smoking a pack per day since he was 18 years old. Patient denies abdominal pain, fevers, chills, wheeze, hemoptysis, hematochezia, melena, or changes in bowel habits. In the ED, an EKG was completed showing normal sinus rhythm with new T-wave abnormalities in the anterior leads CBC was completed significant for mild anemia (13.2) without leukocytosis or neutrophilia Coagulation studies were wnl CMP largely wnl other than hyperglycemia (124) seen on previous ED evaluations UA negative, BIOFIRE: positive for Entero/Rhino virus CTA chest: Negative for PE, pneumonia prominent in RML, severe emphysema with bullous change at left lung apex, trace left apical pneumothorax. Patient is currently hemodynamically stable and afebrile. At the time of my evaluation, patient is on RA and 97% SpO2. Allergies Allergy/AdvReac Type Severity Reaction Status Date / Time No Known Allergies Allergy Unverified 06/07/21 15:43 Home Medications Medication Instructions Recorded Confirmed Type aspirin 325 mg tablet 325 mg PO BID PRN .Headache/pain 06/07/21 09/11/24 History Past Med/Surg History Problem List (Updated 09/11/24 @ 14:19 by Tawnya Hodgson PA-C) Pneumothorax on left (Acute) Secondary spontaneous pneumothorax Current smoker Right middle lobe pneumonia (Acute) Bullous emphysema (Acute) Severe chronic obstructive pulmonary disease Rhinovirus infection (Acute) Enterovirus infection Social History Smoking Status: Current every day smoker Tobacco Type: Cigarettes Cigarettes Per Day: 20; Second Hand Exposure: No; Do You Dip or Chew Tobacco: No; Hx Alcohol Use: No Hx Substance Use: No Preferred Language: Turkish Communication Ability: Effective Break Out Worker Required: No Beliefs That Will Affect Care: None Current Living Situation: Alone Feels Safe at Home: Yes Assistive Devices: None Physical Exam Physical Exam: General: patient resting comfortably, NAD, non-toxic in appearance, answers questions appropriately. Patient is thin, appears slightly older than stated age, and has prominent barrel chest associated with emphysema Skin: warm, dry, intact HEENT: NC/AT, anicteric sclera, conjunctiva without injection, moist mucus membranes. Heart: +S1/S2, regular, no m/r/g Lungs: equal air entry bilaterally, no rales/rhonchi/wheezes Abd: +BS, soft, NT/ND Ext: warm, no clubbing/cyanosis or edema Neuro: nonfocal, speech intact, no facial droop, moving all extremities. Results & Data Results & Data Vital Signs (Past 12 Hours) Vital Signs Temp Pulse Pulse Resp BP BP Pulse Ox 09/11/24 11:00 71 16 139/78 97 09/11/24 10:55 96 09/11/24 09:09 75 09/11/24 09:03 77 16 93 09/11/24 09:03 74 16 148/84 H 94 09/11/24 08:34 36.6 C 82 18 154/98 H 91 O2 Del Method 09/11/24 11:00 Room Air 09/11/24 10:55 Room Air 09/11/24 09:09 09/11/24 09:03 Room Air 09/11/24 09:03 Room Air 09/11/24 08:34 Room Air Supervising Physician Co-Signing Physician Notes I personally examined the patient and verified all mitchell points of history and exam, discussed case, and agree with decision making with Dr Ruiz Started feeling sick around Thursday, abrupt worsening of shortness of breath yesterday. Vitals noted, in general he is awake and alert pleasant fatigued no distress, fortunately on room air with no tachypnea or accessory muscle use no conversational dyspnea. He has good recent and remote recall normal mood and affect good judgment and insight. Skin without rashes pallor or icterus. Neuro without focal deficits. Labs and diagnostics noted. Shortness of breath, fortunately without significant hypoxia. I suspect his initial illness at the beginning of the week was the viral respiratory infection/bronchitis, and then his abrupt worsening yesterday was probably the right middle lobe secondary bacterial overgrowth pneumoniaand then coughing precipitated the small pneumothorax. I suspect the main thing causing his symptoms is the pneumonia superimposed on what I would assume to be severe COPDbut obviously this will require PFTs to be better defined. Zithroma x/Rocephin, supportive care. Appreciate pulmonary input. Serial exams and serial imaging for pneumothorax, fortunately it is quite small and doubtful to require intervention. Discussed smoke cessationhe is willing and believes he can succeed. Cautioned that a lot of the time what we will see his people doing quite well for the first few months after hospital stay directly related to smoking because of the "teachable moment" but then often when a life stressor hits several months down the road people will relapsediscussed that while he is currently quitting smoking, he should plan on how to best mitigate against a relapse months down the road. Once he is doing well enough to get home, we will need to set him up with a PCP as well as continue to follow-up with pulmonary. For now would empirically manage as though he has severe COPD, and then as his clinical course unfolds over the long-term, and we are able to see how he breathes on a "normal day" as well as CPFT's, and then we can titrate treatment appropriately. otherwise as above Resident Activity Tracking Resident Involvement: Resident Care Provided Care Provided: Adult Hospital Medicine
--- NOTE | 2024-09-11 12:50 | Billing Data ---
Date of Service September 11, 2024 Coding Level of Care Code 72719 INT INP/OBS CARE
[2024-09-11] MEDS: guaiFENesin/DEXTROM SYRUP 200MG/20MG 10ML UDC PO SCH (13:23)
[2024-09-11] MEDS ORDERED: POLYETHYLENE (MIRALAX) 17 GM PACK PO PRN (14:12)
[2024-09-11] MEDS ORDERED: ONDANSETRON INJ 2 MG/ML 2 ML VIAL IV PRN (14:12)
[2024-09-11] MEDS ORDERED: ASPIRIN 325 MG ECTAB PO PRN (14:12)
[2024-09-11] MEDS ORDERED: ALUMINUM/MAGNESIUM SUSP 30 ML UDC PO PRN (14:12)
[2024-09-11] MEDS: FORMOTEROL 20 MCG/2 ML VIAL NEB SCH (19:50)
[2024-09-11] MEDS: BUDESONIDE 0.5 MG/2 ML VIAL (PULMICORT) NEB SCH (19:50)
[2024-09-11] MEDS: ACETAMINOPHEN 325 MG TAB PO PRN (20:41)
[2024-09-11] MEDS: COUGH DROP (SUGAR FREE) LOZ 24 LOZ/1 BOX BUCCAL PRN (20:42)
[2024-09-12 06:33] LABS: Basophils # (auto) 0.05 K/uL (0.00-0.20); Basophils % (auto) 0.6 %; Eosinophils # (auto) 0.14 K/uL (0.00-0.50); Eosinophils % (auto) 1.7 %; Hematocrit (blood only) 37.4 % (42.0-52.0); Hemoglobin 12.6 g/dl (14.0-18.0); Immature Granulocytes # (auto) 0.02 K/uL (0.01-0.20); Immature Granulocytes % (auto) 0.2 %; Lymphocytes # (auto) 1.16 K/uL (1.20-3.40); Lymphocytes % (auto) 14.4 %; Mean Corpuscular Hemoglobin 29.4 pg (25.0-34.0); Mean Corpuscular Hgb Conc 33.7 g/dL (32.0-36.0); Mean Corpuscular Volume 87.4 fL (80.0-100.0); Mean Platelet Volume 9.1 fL (9.4-12.4); Monocytes # (auto) 1.24 K/uL (0.11-0.59); Monocytes % (auto) 15.4 %; Neutrophils # (auto) 5.44 K/uL (1.40-6.50); Neutrophils % (auto) 67.7 %; Platelet Count 298 K/uL (130-400); RDW Coefficient of Variation 12.7 % (11.5-14.5); RDW Standard Deviation 40.4 fL (36.4-46.3); Red Blood Count 4.28 M/uL (4.70-6.10); White Blood Count 8.05 K/ul (4.8-10.8)
[2024-09-12 06:59] LABS: BUN Creatinine Ratio 9.6 (10-20); Calcium 8.8 mg/dl (8.6-10.3); Creatinine Clr Calc Pharmacy 74.6 ml/min
--- NOTE | 2024-09-12 07:44 | Hospitalist Progress Note ---
Date of Service September 12, 2024 Assessment & Plan (1) Enterovirus infection: (2) Rhinovirus infection: (3) Severe chronic obstructive pulmonary disease: (4) Bullous emphysema: (5) Right middle lobe pneumonia: Plan Kranthi Padilla is a 69 y/o M without relevant past medical history due to limited physician follow-up. Patient admitted due to severe emphysema and pneumothorax complicated by concurrent rhino/entero virus infection and RML pneumonia. Entero/Rhino virus infection/RML pneumonia/Severe COPD with Bullous emphysema/Trace L. Pneumothorax - Patient without acute respiratory distress reports increasing SOB with exertion since yesterday associated with flu-like symptoms - Patient with 50 pack year smoking history - Continue Zithromax and Rocephin antibiotic therapy for RML consolidation, follow sputum cx - Continue Tessalon Perls anti-tussive medication, nebulized bronchodilators, and serial CXRs for pneumothorax - Consider PFTs, annual low-dose chest CT screenings, and Trelegy inhaler upon d/c - 3 month follow-up diagnostic chest CT for to view resolution of pneumonia without underlying pulmonary nodule - Currently on RA, titrate oxygen requirements for SpO2: 90-92% - Avoid positive pressure ventilation and flutter valve therapy - Family history of Lung carcinoma in brother and sister who were also smokers, patient is contemplating quitting smoking - Case management consult placed to discuss regular PCP follow-up, glad to see patient outpatient in clinic following hospital stay Admission and Anticipated Discharge Date Admission Date: September 11, 2024 Results & Data Results & Data Vital Signs (Past 12 Hours) Vital Signs Temp Pulse Pulse Pulse Resp BP Pulse Ox 09/12/24 07:26 70 09/12/24 07:10 76 18 90 09/12/24 07:06 36.5 C 76 17 149/79 H 90 09/12/24 03:33 36.5 C 66 16 135/79 92 09/11/24 23:31 36.6 C 79 16 121/77 91 09/11/24 21:46 76 09/11/24 21:02 09/11/24 20:44 150/76 H 09/11/24 20:06 36.6 C 70 17 162/87 H 92 09/11/24 19:50 73 18 95 O2 Del Method 09/12/24 07:26 09/12/24 07:10 Room Air 09/12/24 07:06 Room Air 09/12/24 03:33 Room Air 09/11/24 23:31 Room Air 09/11/24 21:46 09/11/24 21:02 Room Air 09/11/24 20:44 09/11/24 20:06 Room Air 09/11/24 19:50 Room Air (5) Right middle lobe pneumonia Pneumonia type: due to unspecified organism Qualified Code(s): J18.9 - Pneumonia, unspecified organism
[2024-09-12] MEDS: ENOXAPARIN INJ 30 MG/0.3 ML SYR SQ SCH (08:39)
[2024-09-12] MEDS: AZITHROMYCIN 250 MG TAB PO SCH (08:40)
--- NOTE | 2024-09-12 08:48 | XRay Report ---
EXAM: XR chest 1V portable CLINICAL HISTORY: Followup. TECHNIQUE: An X-ray image of the chest is obtained in AP projection. COMPARISON: 01/30/2023. FINDINGS: Pulmonary Parenchyma: Unchanged bilateral hyperinflated lungs with prominent bronchovascular/interstitial markings. Unchanged bullous emphysema in lung apices, more on the left. New finding of mild haziness in right lower zone. New finding of blunting of right CP angle, likely small pleural effusion vs thickening. Heart and Mediastinum: Heart size and shape are normal. No mediastinal widening or masses. No hilar or mediastinal lymphadenopathy. Bony Thorax: Bony thorax appears intact without fractures or deformities. Soft Tissues: Soft tissues overlying the chest wall are unremarkable. IMPRESSION: 1. Unchanged bilateral hyperinflated lungs with prominent bronchovascular/interstitial markings - COPD. 2. Unchanged bullous emphysema in lung apices, more on the left. 3. New finding of mild haziness in right lower zone, coule be superimposed infection/inflammation. 4. New finding of blunting of right CP angle, likely small pleural effusion vs thickening. Electronically signed by Kemal Mathews 09-12-2024 08:48 AM
--- NOTE | 2024-09-12 09:06 | Pulmonology Progress Note ---
Date of Service September 12, 2024 Assessment & Plan (1) Right middle lobe pneumonia: Pneumonia type: due to unspecified organism Qualified Code(s): J 18.9 - Pneumonia, unspecified organism (2) Bullous emphysema: (3) Severe chronic obstructive pulmonary disease: (4) Rhinovirus infection: (5) Enterovirus infection: (6) Current smoker: Plan Impression: 69-year-old male with extensive history of tobacco abuse who continues to smoke at the rate of 1 pack/day admitted with rhinovirus infection and probable right middle lobe pneumonia. There was initial concern about an apical pneumothorax however on review of his chest x-rays and CT scan, this likely represents an apical bleb. The chest x-ray is not significantly changed compared to prior chest x-ray from several years ago. Recommendations: 1. No evidence of pneumothorax and no indication for serial imaging. 2. Rhinovirus infection: Supportive care. 3. Right middle lobe consolidation: Agree with antibiotics. Currently on azithromycin and Rocephin. Rocephin can be transition to oral Ceftin. Patient should have follow-up imaging performed with a noncontrast CT scan of the chest in 8 to 12 weeks to document resolution. 4. Tobacco abuse: Patient was strongly counseled regarding the importance of smoking cessation. He was advised to expect worsening respiratory status and decreased life expectancy if he continues his tobacco habit. 5. COPD: Consider outpatient PFTs in 8 to 12 weeks. Currently being treated for exacerbation. Agree with 5-day course of azithromycin. Will discontinue nebulized therapies and transition to Breo/Incruse. Patient can go home on Trelegy. 5. Recommend assessing patient for supplemental oxygen prior to discharge with formal two-step. You may require oxygen at discharge and may require oxygen at night. Patient appears to be improving from a pulmonary standpoint can likely be dismissed from the hospital. If additional outpatient follow-up is needed, he can follow-up with Dr. De León in the outpatient setting. Pulmonary will sign off. Feel free to contact us with questions or concerns Admission and Anticipated Discharge Date Admission Date: September 11, 2024 Subjective Patient seen and examined. EMR reviewed. 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 The patient reports he is doing well clinically. He is not experiencing any chest pain. He is coughing up some scant amount of phlegm. No hemoptysis. He denies fevers chills or night sweats. No crepitus. Minimal coughing. He is tolerating a diet and has been ambulatory back and forth to the restroom. Review of Systems 2 Review of Systems: All systems reviewed & are unremarkable except as noted in Subjective Physical Exam 2 Constitutional: + cachectic; no acute distress Neck: trachea midline, no thyromegaly Respiratory: no respiratory distress, no labored breathing, no cough and not tachypneic Auscultation: + diminished lung sounds No crepitus Cardiovascular: RRR, no murmur, no edema Gastrointestinal (Abdomen): normal bowel sounds, soft, nontender, no hepatosplenomegaly Musculoskeletal: Extremities: extremities normal to inspection Skin: no rashes, warm and dry Neurologic: Nonfocal exam Lymphatic: no cervical lymphadenopathy Results & Data Results & Data Vital Signs (Past 12 Hours) Vital Signs Temp Pulse Pulse Pulse Resp BP Pulse Ox 09/12/24 07:40 09/12/24 07:26 70 09/12/24 07:10 76 18 90 09/12/24 07:06 36.5 C 76 17 149/79 H 90 09/12/24 03:33 36.5 C 66 16 135/79 92 09/11/24 23:31 36.6 C 79 16 121/77 91 09/11/24 21:46 76 09/11/24 21:02 O2 Del Method 09/12/24 07:40 Room Air 09/12/24 07:26 09/12/24 07:10 Room Air 09/12/24 07:06 Room Air 09/12/24 03:33 Room Air 09/11/24 23:31 Room Air 09/11/24 21:46 09/11/24 21:02 Room Air Laboratory Results 09/12/24 05:39 09/12/24 05:39 PG Care Time/CCT Total # of Minutes Spent Total Time Spent with Patient: Total time spent is greater than 50% in coordination of care (as documented) at patient's floor/unit and/or counseling patient: Coding Level of Care Code 32731 SUB INP/OBS CARE 2/35MIN Diagnoses Right middle lobe pneumonia J18.9 Pneumonia type: due to unspecified organism Bullous emphysema J43.9 Severe chronic obstructive pulmonary disease J44.9 Rhinovirus infection B34.8 Enterovirus infection B34.1 Current smoker F17.200
[2024-09-12] MEDS: FLUTICASONE/VILANTEROL 100/25MCG 14 PUFFS/INHALER INH SCH (10:34)
[2024-09-12] MEDS: UMECLIDINIUM BROMIDE 62.5MCG/BLISTER 7 PUFFS/INHALER INH SCH (10:34)
[2024-09-12] MEDS: cefUROXime axetil 500 MG TAB PO SCH (10:35)
[2024-09-12] MEDS ORDERED: cefTRIAXone SODIUM 1,000 MG/50 ML BAG IV SCH (11:00)
--- NOTE | 2024-09-12 16:44 | Discharge Summary ---
Date of Service September 12, 2024 Admission HPI Per Admitting Provider Kranthi Padilla is a 69 y/o M without previous past medical history as he does not regularly see a doctor or PCP. Patient reports that over the past week or so he has felt like he has had the flu, with cough, fatigue, and muscle aches. Patient notes that he felt much more "run down" than usual yesterday and noticed that he was getting very SOB with exertion during work. 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 Patient denies chest pain during exertion and rest and denies SOB at rest. Patient does endorse a productive cough of yellow phlegm that feels stuck in his chest and throat and is difficult to clear. Patient does reports a history of palpitations and states that he was supposed to see a doctor to get an evaluation for a-fib, but reports that he was stubborn and did not follow-up. Patient's only regular medication is aspirin and he has never used oxygen or inhaler therapies. Mr. Padilla reports that he has been smoking a pack per day since he was 18 years old. Patient denies abdominal pain, fevers, chills, wheeze, hemoptysis, hematochezia, melena, or changes in bowel habits. In the ED, an EKG was completed showing normal sinus rhythm with new T-wave abnormalities in the anterior leads CBC was completed significant for mild anemia (13.2) without leukocytosis or neutrophilia Coagulation studies were wnl CMP largely wnl other than hyperglycemia (124) seen on previous ED evaluations UA negative, BIOFIRE: positive for Entero/Rhino virus CTA chest: Negative for PE, pneumonia prominent in RML, severe emphysema with bullous change at left lung apex, trace left apical pneumothorax. Patient is currently hemodynamically stable and afebrile. At the time of my evaluation, patient is on RA and 97% SpO2. Admission Exam Per Admitting Provider General: patient resting comfortably, NAD, non-toxic in appearance, answers questions appropriately. Patient is thin, appears slightly older than stated age, and has prominent barrel chest associated with emphysema Skin: warm, dry, intact HEENT: NC/AT, anicteric sclera, conjunctiva without injection, moist mucus membranes. Heart: +S1/S2, regular, no m/r/g Lungs: equal air entry bilaterally, no rales/rhonchi/wheezes Abd: +BS, soft, NT/ND Ext: warm, no clubbing/cyanosis or edema Neuro: nonfocal, speech intact, no facial droop, moving all extremities. Principal Diagnosis Severe emphysema, RML pneumonia, rhino/entero virus infection Discharge Exam General: patient resting comfortably, NAD, non-toxic in appearance, answers questions appropriately. Patient is thin, appears slightly older than stated age, and has prominent barrel chest associated with emphysema Skin: warm, dry, intact HEENT: NC/AT, anicteric sclera, conjunctiva without injection, moist mucus membranes. Heart: +S1/S2, regular, no m/r/g Lungs: equal air entry bilaterally, no rales/rhonchi/wheezes Abd: +BS, soft, NT/ND Ext: warm, no clubbing/cyanosis or edema Neuro: nonfocal, speech intact, no facial droop, moving all extremities. Discharge Data Allergies Allergy/AdvReac Type Severity Reaction Status Date / Time No Known Allergies Allergy Unverified 06/07/21 15:43 Consultations 09/11/24 11:43 ED Decision to Admit Stat Ordered Studies 09/11/24 08:56 CT abd pelvis IV con only Stat CT angio chest PE protocol Stat Hospital Course (1) Enterovirus infection: (2) Rhinovirus infection: (3) Severe chronic obstructive pulmonary disease: (4) Bullous emphysema: (5) Right middle lobe pneumonia: Plan Kranthi Valerie is a 69 y/o M without relevant past medical history due to limited physician follow-up. Patient admitted due to severe emphysema and pneumothorax complicated by concurrent rhino/entero virus infection and RML pneumonia. Entero/Rhino virus infection/RML pneumonia/Severe COPD with Bullous emphysema/Trace L. Pneumothorax - Patient without acute respiratory distress reports increasing SOB with exertion since yesterday associated with flu-like symptoms - Patient with 50 pack year smoking history - Continue Zithromax and Rocephin antibiotic therapy for RML consolidation, follow sputum cx - Continue Tessalon Perls anti-tussive medication, nebulized bronchodilators, and serial CXRs for pneumothorax - Consider PFTs, annual low-dose chest CT screenings, and Trelegy inhaler upon d/c - 3 month follow-up diagnostic chest CT for to view resolution of pneumonia without underlying pulmonary nodule - Currently on RA, titrate oxygen requirements for SpO2: 90-92% - Avoid positive pressure ventilation and flutter valve therapy - Family history of Lung carcinoma in brother and sister who were also smokers, patient is contemplating quitting smoking - Case management consult placed to discuss regular PCP follow-up, scheduled patient with me on September [address] Thacker on September 16 Total Time Total Time Spent Total Time Spent (In Minutes): See attending attestation Discharge Plan Discharge Items Patient Disposition: Home - Self-Care Reason For Visit: SEVERE EMPHYSEMA, RML PNEUMONIA Discharge Diagnosis: SEVERE EMPHYSEMA, RML PNEUMONIA Condition on Discharge: Fair Activity: Per Instructions section Non-emergency contact: Primary Care Provider Call non-emergency contact if: your symptoms worsen and your pain is not controlled Follow-up/Referrals: Johanny Prieto PA-C [Physician House Mover Helper] - 09/20/24 1:30 pm (Please arrive 15 minutes prior to scheduled appointment. Please schedule est care appointment at this appointment.) PCP,NO [Primary Care Provider] - Diet: Regular Addtl Attending Provider Instructions: You were admitted to the hospital for severe emphysema, RML pneumonia, and rhino/entero virus infection. You were treated with antibiotics azithromycin by mouth and IV ceftriaxone in the hospital and report that you felt better than last night but still are getting mildly SOB with exertion and briefly requiring oxygen. This SOB quickly passed and you were evaluated by PT who noted the increased SOB on more strenuous exertion and this is likely a result of your diminished lung function due to your smoking history and severe emphysema. I believe that a inhaler such as Trelegy will be especially helpful in helping you with your shortness of breath and I am happy to see you in clinic and discuss further lung testing such as a non-contrast CT of your chest to view your lungs in the next 8-12 weeks and a set of pulmonary function tests to see how functional your lungs currently are and if there should be any changes to your medical therapy. We will also discuss smoking cessation at our appointment, as you have endorsed that you would like to quit. Although initially there were thoughts that a portion of your lung was collapsed due to early imaging, the pulmonology team and hospitalist team discussed that this is not the case and that this is related to emphysema changes at the top portion of your lungs. Other than ruling out nodules below the area of your lung consolidation and pneumonia this is another reason for getting PFT's (pulmonary function tests) and a lung CT. Upon discharge you will be continuing the antibiotics to clear up your pneumonia, these antibiotics will be sent to your [facility] on [facility] to be picked up. You will take Azithromycin for the next 3 days and you will take Cefuroxime Axetil twice daily for the next 5 days. Please do not miss any of these doses of medication and the scheduling and dosages will be outlined below. In addition to these two antibiotics, you will also be prescribed a Trelegy inhaler and should take 1 puff daily of this medication. At your follow-up visit with me, we can discuss the completion of your antibiotics and how you are tolerating the Trelegy inhaler. A discharge summary will be sent to your primary care physician to ensure continuity of care. Please bring this discharge summary with you to your next office appointment so that your provider can review it at that time. Follow-up appointments: You have a hospital follow-up appointment at 1:[address] Thacker this Thursday, 09/16 at [facility] across the street from [facility] You have a follow-up appointment with me (Dr. David Ruiz) on September 29 to establish care and discuss more chronic issues and other lung related therapy. Keep all your follow-up appointments as already scheduled. If you cannot make an appointment, notify your provider. Medications: Your medication list has been reviewed and reconciled upon discharge to ensure a ccuracy and continuity of care. An updated list of all your medications is included with your hospital discharge paperwork. Please review this list closely, and make note of any changes. We sent a new medication called Azithromycin to your pharmacy. Take Azithromycin 250 mg one tablet daily for the next 3 days for a total of 3 doses We sent a new medication called Cefuroxime axetil to your pharmacy. Take Cefuroxime axetil (Ceftin) 500mg one tablet twice daily for 5 days for a total of 10 doses An inhaler called Trelegy Ellipta (100mcg/62.5mcg/25mcg) has been sent to your pharmacy. Please take 1 puff of this medication daily Take your medications as instructed; do not skip a dose of your medicines. Make sure all of your doctors know every medicine you are taking (including ybds-son-xozjlxt medicines, vitamins, and supplements). Call your primary care provider before taking any new medicines (including yicv-lnv-jwedtqz medicines, vitamins, and supplements), because some of these may interact with your current medications, or may make your symptoms worse. Tell your primary care provider if you cannot afford your medications. CONTACT YOUR PRIMARY CARE PROVIDER if you experience any of the following: Difficulty following your treatment plan, or difficulty taking medications CALL 911 OR GO TO THE EMERGENCY DEPARTMENT if you experience any of the f ollowing: Sudden, severe abdominal pain or nausea/vomiting Severe chest pain, or chest pain that radiates (moves) to your jaw or arm Sudden, severe shortness of breath or difficulty breathing Thank you for allowing us to participate in your care. Pending Studies at Discharge: No Stand-Alone Forms: My [facility] [employer], Smoking Cessation Medications and DC Order Prescriptions: New cefuroxime axetil 500 mg tablet 500 mg PO BID Qty: 10 0RF Rx Instructions: Take 1 tablet twice daily or approximately 12 hours apart for the next 5 days. 10 doses total. azithromycin 250 mg tablet 250 mg PO DAILY Qty: 3 0RF Rx Instructions: Please take azithromycin 250 mg once per day for the next 3 days to complete your 5 day course. Trelegy Ellipta 100-62.5-25 mcg blister with device 1 inh inhalation DAILY Qty: 60 0RF Rx Instructions: Please take 1 puff of Trelegy Ellipta inhaler daily. Continued aspirin 325 mg Tablet 325 mg PO BID PRN (Reason: .Headache/pain) Discharge Orders: Discharge Order (Routine); Ordered 09/12/24 Ordered By: David Ruiz Admission Data Admit Date/Time: 09/11/24 12:18 Attending Provider: Ksenia Vera Admit Provider: David Ruiz Primary Care Provider: PCP,NO Other Providers: Dereck Hobson Other Interventions: Discharge Summary Assessment (RN) Last Done: 09/12/24 14:44 Supervising Physician Co-Signing Physician Notes I personally examined the patient and verified mitchell points of history and exam, discussed case, and agree with decision making and plan documented by Dr. Ruiz. Patient on admission for right middle lobe pneumonia in setting of rhino/enterovirus, bullous emphysema, severe COPD, and chronic tobacco abuse. Patient reports improvement of symptoms, ambulated briefly with decrease of oxygenation to 88%, improved quickly with rest. Patient maintained saturations on RA >90% throughout day. Will continue cefuroxime and azithromycin on discharge. Patient advised to have noncontrast CT of chest in 8 to 12 weeks to document resolution, as well as consideration of pulmonary function tests. Patient discharged on Trelegy. Reviewed the importance of tobacco cessation at length with patient, he denied smokers living with him, states that he is inspired by others and family who have quit "cold turkey." Patient appears frail and thin, diminished breath sounds bilaterally, regular rate and rhythm, no acute distress. Patient will follow-up with pulmonary and has an appointment scheduled to establish with PCP outpatient. Total attending time 36 minutes
--- NOTE | 2024-09-14 12:26 | Electrocardiogram Report ---
Test Reason : Blood Pressure : */* mmHG Vent. Rate : 73 BPM Atrial Rate : 73 BPM P-R Int : 124 ms QRS Dur : 94 ms QT Int : 380 ms P-R-T Axes : 86 86 79 degrees QTcB Int : 418 ms Normal sinus rhythm Minimal voltage criteria for LVH, may be normal variant ( Danny product ) Borderline ECG When compared with ECG of 30-Jan-2023 09:56, Nonspecific T wave abnormality now evident in Anterior leads Confirmed by Meek Velasquez ([id number]) on 09/14/2024 12:26:16 PM Referred By: REFERRED SELF Confirmed By: Meek Velasquez
== END 2024-09-12 18:24 | disposition home or self-care (01) | DRG 194 ==
LOC: ED 08:27 → 2S 12:18 → SUATTDRO 12:18 → 2S 13:42